=== PATIENT | female | born 1985 | race Caucasian/White ===

== ENCOUNTER 2017-02-16 16:25 | Emergency (ER) | payer OTHER ==
[~2017-02-16] VITALS: Ht 154.9 cm; Wt 87.2 kg
[~2017-02-16 16:25] MED LIST: ALBU8.5H IH
[2017-02-16] MEDS ORDERED: PREN-161 PO (16:49)
[2017-02-16] MEDS ORDERED: PREN-61 PO (16:50)
[2017-02-16 20:03] VITALS: BP 116/72
== END 2017-02-16 20:05 | disposition home or self-care (01) ==
LOC: EMS 16:26
DX: O20.0 Threatened abortion (principal); J45.909 Unspecified asthma, uncomplicated; Z3A.01 Less than 8 weeks gestation of pregnancy; Z88.0 Allergy status to penicillin
CPT/HCPCS: 99283

== ENCOUNTER 2022-08-15 14:11 | Emergency (ER) | payer OTHER ==
[~2022-08-15] VITALS: Ht 152.4 cm; Wt 64.5 kg
[~2022-08-15 14:11] MED LIST changes: -ALBU8.5H IH; +ALBU8.5H8 IH; +PREN-61 PO
[2022-08-15] MEDS ORDERED: METF-1211 PO (14:29)
[2022-08-15] MEDS ORDERED: ATOR20TA86 PO (14:29)
[2022-08-15 14:31] LABS: GLUCOSE,POINT OF CARE 222 MG/DL (70-110)
[2022-08-15] MEDS ORDERED: ACETAMINOPHEN 500 MG TABLET PO ONE (17:00)
[2022-08-15] MEDS ORDERED: ALBU8HFA IH (17:02)
[2022-08-15] MEDS ORDERED: FLUT12AE20 IH (17:02)
[2022-08-15] MEDS ORDERED: MONT-40 PO (17:02)
[2022-08-15 17:25] VITALS: BP 126/67
== END 2022-08-15 17:50 | disposition home or self-care (01) ==
LOC: EMS 14:16
DX: G44.209 Tension-type headache, unspecified, not intractable (principal); F41.9 Anxiety disorder, unspecified; J45.909 Unspecified asthma, uncomplicated; Z88.0 Allergy status to penicillin
CPT/HCPCS: 82962; 99282